=== PATIENT | female | born 1950 | race Two or more races ===

== ENCOUNTER 2017-11-19 08:00 | Inpatient (IN) | payer OTHER ==
[~2017-11-19] VITALS: Ht 152.4 cm; Wt 62.6 kg
[~2017-11-19 08:00] MED LIST: CEFADROXIL500 MG PO; GABAPENTIN400 MG PO; MAXIMUM DAILY1 EACH PO; METFORMIN HCL500 MG PO; METROPOLOL PO; OMEPRAZOLE40 MG PO; PERCOCET 5/3251 TAB PO; SULINDAC150 MG PO; XARELTO10 MG PO
[2017-11-29] MEDS ORDERED: CEFADROXIL500 MG PO (08:10)
[2017-11-29] MEDS ORDERED: XARELTO10 MG PO (08:11)
[2017-11-29] MEDS ORDERED: PERCOCET 5-3251 EACH PO (08:14)
== END 2017-11-29 13:03 | DRG 470 ==
LOC: SURG 11-26 05:35 → O/R 11-26 05:35 → SURH 11-26 08:00 → SURG 11-26 11:10
PROVIDERS: Orthopaedic Surgery
PROC: 0QNF0ZZ Release Left Patella, Open Approach (ICD-10-PCS; 2017-11-26)
PROC: 0SRD0J9 Replacement of Left Knee Joint with Synthetic Substitute, Cemented, Open Approach (ICD-10-PCS; principal; 2017-11-26 10:15)
DX: M17.11 Unilateral primary osteoarthritis, right knee (principal); D62 Acute posthemorrhagic anemia; M80.00XA Age-related osteoporosis with current pathological fracture, unspecified site, initial encounter for fracture; E11.9 Type 2 diabetes mellitus without complications; I10 Essential (primary) hypertension; E66.8 Other obesity

== ENCOUNTER 2024-02-12 18:20 | Emergency (ER) | payer OTHER ==
[~2024-02-12] VITALS: Ht 152.4 cm; Wt 67.1 kg
[~2024-02-12 18:20] MED LIST changes: +PERCOCET 5-3251 EACH PO
[2024-02-12] MEDS ORDERED: CLONIDINE HCL 0.1 MG TABLET PO STA (23:34)
[2024-02-12] MEDS ORDERED: CLONIDINE HCL 0.1 MG TABLET PO ONE (23:39)
[2024-02-13 00:28] LABS: HEMATOCRIT 38.3 % (36.0-45.00); HEMOGLOBIN 13.2 g/dL (12.0-15.00); MEAN CELL VOLUME 92.4 fL (80.00-100.00); MEAN CORPUSCULAR HEMOGLOBIN 31.7 pg (27.00-32.0); MEAN CORPUSCULAR HGB CONC 34.4 g/dl (32.0-36.0); PLATELET COUNT 346 K/uL (150-450); RED BLOOD COUNT 4.14 M/uL (4.00-6.00); RED CELL DISTRIBUTION WIDTH 13.3 % (11.5-14.5)
[2024-02-13 00:46] LABS: CALCIUM 9.4 mg/dL (8.5-10.1); CREATININE SERUM 0.85 mg/dL (0.55-1.02); GFR 65.74; POTASSIUM 3.85 mEq/L (3.5-5.1)
[2024-02-13] MEDS ORDERED: 0.9 % SODIUM CHLORIDE 1,000 ML IV ONE (01:00)
[2024-02-13 01:31] LABS: INR 1.05; PARTIAL THROMBOPLASTIN TIME 28.6 SECONDS (22.0-34.0)
[2024-02-13 01:35] LABS: ALBUMIN 3.9 gm/dL (3.4-5.0); BILIRUBIN TOTAL 0.57 mg/dL (0.3-1.2); CALCIUM 9.3 mg/dL (8.5-10.1); CREATININE SERUM 0.9 mg/dL (0.55-1.02); GFR 61.55; GLOBULINA 3.5 G/DL (2.4-3.5); POTASSIUM 3.56 mEq/L (3.5-5.1); TOTAL PROTEIN 7.4 gm/dL (6.4-8.2)
== END 2024-02-13 07:24 | disposition designated cancer center or children's hospital (05) ==
LOC: ER 18:21
PROVIDERS: General Practice
DX: S06.5XAA Traumatic subdural hemorrhage with loss of consciousness status unknown, initial encounter (principal); X58.XXXA Exposure to other specified factors, initial encounter; Y93.9 Activity, unspecified; Y92.89 Other specified places as the place of occurrence of the external cause; Y99.9 Unspecified external cause status; Z91.013 Allergy to seafood; Z20.822 Contact with and (suspected) exposure to COVID-19; M62.81 Muscle weakness (generalized); I10 Essential (primary) hypertension
CPT/HCPCS: 36415; 70450; 71045; 93005; 96365; 99285; J3490